=== PATIENT | female | born 1965 | race Caucasian/White ===

== ENCOUNTER 2016-11-13 06:44 | Emergency (ER) | payer OTHER ==
[~2016-11-13] VITALS: Ht 154.9 cm; Wt 68.0 kg
[~2016-11-13 06:44] MED LIST: ALBUTEROL0.09 MG/A1 INH; AMOXICILLIN875 M1 PO; AMOXIL500 MG PO; ANTI-FUNGAL1% TOP; CLEOCIN HCL300 MG PO; IBU800 MG PO; IBUPROFEN800 M1 PO; KEFLEX500 M1 PO; MEDROL DOSEPAK1 PAC PO; MOBIC15 MG PO; MOTRIN800 MG PO; MUCINEX600 M1 PO; NASONEX0.05 MG/Ac NAS; NORFLEX100 MG PO; PERCOCET 325 MG1 TA2 PO; PERCOCET 7.5-31 EACH PO; PROAIR HFA8.5 GM INH; ROBITUSSIN W/CO10 ML PO; TESSALON PERLE100 MG PO; VISTARIL50 MG PO; VOLTAREN75 MG PO; ZITHROMAX Z-PA250 M1 PO; ZITHROMAX250 M2 PO
[2016-11-13 06:57] VITALS: BP 127/78
--- NOTE | 2016-11-13 07:25 | ED INFLUENZA/URI COMPLAINT ---
History of Present Illness General Chief Complaint: General Adult Stated Complaint: CONGESTED/CRISOSTOMO Source: patient, old records Exam Limitations: no limitations Vital Signs & Intake/Output Vital Signs & Intake/Output Vital Signs Date Time Temp Pulse Resp B/P Pulse O2 O2 Flow FiO2 Ox Delivery Rate 11/13 0657 97.5 84 20 127/78 94 Room Air Allergies Coded Allergies: codeine (Intermediate, VOMITING/SENSITIVE TO IT 05/13/16) Reconcile Medications Albuterol Sulfate (Proair Hfa) 90 MCG HFA.AER.AD 2 PUF INH Q4-6 PRN PRN DYSPNEA Albuterol Sulfate (Proair Hfa) 90 MCG HFA.AER.AD 2 PUF INH Q4-6 PRN PRN bronchitis Amoxicillin 875 MG TABLET 1 TAB PO BID dental abscess Azithromycin (Zithromax) 250 MG TABLET 1 DP PO AD BRONCHITIS 2 the first day followed by 1 for days 2-5 Azithromycin (Zithromax) 250 MG TABLET 1 DP PO AD bronchitis 2 the first day followed by 1 for days 2-5 Benzonatate (Tessalon Perle) 100 MG CAPSULE 1 CAP PO TID PRN COUGH Cephalexin (Keflex) 500 MG CAPSULE 2 CAP PO ONCE ANTIBIOTIC (Reported) Guaifenesin (Mucinex) 600 MG TAB.ER.12H 1 TAB PO BID bronchitis Ibuprofen (Ibu) 800 MG TAB 1 TAB PO PRN PAIN (Reported) Ibuprofen 800 MG TABLET 1 TAB PO Q8 PRN PAIN Ibuprofen 800 MG TABLET 1 TAB PO NEEDED Fever/Body aches Oxycodone HCl/Acetaminophen (Percocet 7.5-325 MG Tablet) 1 EACH TABLET 1 TAB PO PRN PAIN (Reported) Triage Note: PT STATES "MY EARS ARE CLOGGED, I HAVE A COUGH AND SORE THROAT" X 2 DAYS. STATES THIS HAPPENS EVERY YEAR". STATES TOOK A MOTRIN FOR SORE THROAT LAST NIGHT AND IT WENT AWAY. Triage Nurses Notes Reviewed? yes Onset: Gradual Duration: day(s): (FEW) Timing: recent history Severity: severe Associated Symptoms: cough, sore throat HPI: This is a 51-year-old female with history of right chronic rotator cuff pain and presents to the ER chief complaint of URI symptoms for the past 3 days. Bad cough at night, ear pain, throat pain and worse voice. Denies any recent sick contacts. She is a pack per day smoker. No other associated symptoms. Denies rash, abdominal pain, nausea or vomiting. Past History Travel History Traveled to [place] past 21 day No Medical History Any Pertinent Medical History? 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 No Review of Systems Review of Systems Constitutional: Reports: chills. EENTM: Reports: throat pain. Respiratory: Reports: cough. Cardiovascular: Denies: chest pain. GI: Reports: no symptoms. Genitourinary: Reports: no symptoms. Musculoskeletal: Reports: no symptoms. Skin: Reports: no symptoms. Neurological/Psychological: Reports: no symptoms. Hematologic/Endocrine: Denies: bruising, bleeding, polyuria, polydipsia. Immunologic/Allergic: Denies: splenectomy. All Other Systems: Reviewed and Negative Physical Exam Physical Exam General Appearance: well developed/nourished, alert, awake, mild distress Head: atraumatic, normal appearance Eyes: Bilateral: normal appearance, PERRL, EOMI. Ears, Nose, Throat: pharyngeal erythema Neck: normal inspection Respiratory: decreased breath sounds Cardiovascular: regular rate/rhythm Extremities: normal inspection, normal capillary refill, normal range of motion, no edema Neurologic/Psych: no motor/sensory deficits, awake, alert, oriented x 3, normal gait Skin: intact, normal color, warm/dry Core Measures Severe Sepsis Present: No Septic Shock Present: No Progress Differential Diagnosis: pneumonia, sinusitis, URI, PHARYNGITIS Plan of Care: SMOKE CESESATION, PROAIR INHALER, ZITHROMAX. Initial ED EKG: none Departure Departure Time of Disposition: 730 Disposition: HOME OR SELF CARE Condition: Stable Clinical Impression Primary Impression: URI (upper respiratory infection) Secondary Impressions: Tobacco abuse, Tobacco abuse counseling Referrals: MELIDA MATA MD (PCP/Family) Additional Instructions: Take prescriptions as directed. Stop smoking. Follow-up with your doctor in the office. Return as needed. Departure Forms: Customer Survey General Discharge Information Prescriptions: Current Visit Scripts Albuterol Sulfate (Proair Hfa) 2 PUF INH Q4-6 PRN PRN DYSPNEA #1 INHAL Azithromycin (Zithromax) 1 DP PO AD #6 TAB 2 the first day followed by 1 for days 2-5 Benzonatate (Tessalon Perle) 1 CAP PO TID PRN COUGH #30 CAP
[2016-11-13] MEDS ORDERED: ZITHROMAX250 M2 PO (07:29)
[2016-11-13] MEDS ORDERED: TESSALON PERLE100 M1 PO (07:29)
[2016-11-13] MEDS ORDERED: PROAIR HFA8.5 GM INH (07:29)
== END 2016-11-13 07:30 ==
LOC: ERH 06:44
DX: J06.9 Acute upper respiratory infection, unspecified (principal); Z71.6 Tobacco abuse counseling; F17.210 Nicotine dependence, cigarettes, uncomplicated

== ENCOUNTER 2016-12-24 09:05 | Emergency (ER) | payer OTHER ==
[~2016-12-24] VITALS: Ht 154.9 cm; Wt 67.1 kg
[~2016-12-24 09:05] MED LIST changes: +TESSALON PERLE100 M1 PO
[2016-12-24 09:12] VITALS: BP 147/91
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
== END 2016-12-24 10:01 ==
LOC: ERH 09:05
DX: S61.001A Unspecified open wound of right thumb without damage to nail, initial encounter (principal); W27.2XXA Contact with scissors, initial encounter
CPT/HCPCS: 99282

== ENCOUNTER 2017-03-04 20:30 | Emergency (ER) | payer OTHER ==
[~2017-03-04] VITALS: Ht 154.9 cm; Wt 69.4 kg
[2017-03-04 20:34] VITALS: BP 149/109
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
[2017-03-04] MEDS ORDERED: MOBIC15 M1 PO (21:21)
[2017-03-04] MEDS ORDERED: PERCOCET 7.5-31 EACH PO (21:21)
== END 2017-03-04 21:28 ==
LOC: ERH 20:30
DX: G89.29 Other chronic pain (principal); M25.511 Pain in right shoulder

== ENCOUNTER 2018-03-02 19:00 | Emergency (ER) | payer OTHER ==
[~2018-03-02] VITALS: Ht 154.9 cm; Wt 67.6 kg
[~2018-03-02 19:00] MED LIST changes: +CYCLOBENZAPRINE5 M2 PO; +MOBIC15 M1 PO; +PENICILLIN V P500 M1 PO; +PROVENTIL HFA6.7 GM INH
--- NOTE | 2018-03-02 20:26 | ED DYSPNEA/ASTHMA COMPLAINT ---
History of Present Illness General Chief Complaint: Dyspnea (COPD, CHF, Other) Stated Complaint: SOB Source: patient Exam Limitations: no limitations Vital Signs & Intake/Output Vital Signs & Intake/Output Vital Signs Date Time Temp Pulse Resp B/P B/P Pulse O2 O2 Flow FiO2 Mean Ox Delivery Rate 03/02 2027 97.8 84 18 138/74 97 Room Air 03/02 2026 97 Room Air 03/02 1908 97.8 86 20 143/82 97 Room Air Allergies Coded Allergies: codeine (Intermediate, VOMITING/SENSITIVE TO IT 05/13/16) Reconcile Medications Albuterol Sulfate (Proair Hfa) 90 MCG HFA.AER.AD 2 PUF INH Q4-6 PRN PRN sob Azithromycin (Zithromax) 250 MG TABLET 1 DP PO AD bronchitis 2 the first day followed by 1 for days 2-5 Benzonatate (Tessalon Perle) 100 MG CAPSULE 1 CAP PO TID PRN cough Ibuprofen 800 MG TABLET 1 TAB PO Q8 PRN PAIN Oxycodone HCl/Acetaminophen (Percocet 7.5-325 MG Tablet) 7.5 MG-325 MG TABLET 1 TAB PO BID PRN pain Triage Note: PT TO ED C/O SOB FOR 6 MONTHS WITH COUGH. SAW CT MRI TECHNOLOGIST ON FRIDAY (3 DAYS AGO) WAS TOLD HAS "SOMETHING GOING ON IN BASE OF LUNGS" BUT HAS NOT GOTTEN OFFICIAL RESULTS YET. USED TO BE A 2PPD SMOKER, DOWN TO ABOUT 1PPD. HAD A NEBULIZER TREATMENT ON FRIDAY WITH GOOD RELIEF "I CAN'T GET MY DOCTOR TO GET ME ONE" CAME TO ED HOPING TO GET RX FOR NEBULIZER O2 SAT 97% ON RA IN TRIAGE Triage Nurses Notes Reviewed? yes Onset: chronic Duration: 6 months Timing: recent history Severity: moderate HPI: 52-year-old female comes into the emergency room with complaints of shortness of breath is been going on for 6 months. She has a [id number] history. She recently saw a lung doctor and was started on Spiriva. She still continues to smoke. She reports that she is short of breath with any type of exertion. Nebulizer treatments have helped her in the past. She denies any chest pain. Denies any fever chills cough. (Jeancarlos BALLARD,Esvin) Past History Travel History Traveled to [place] past 21 day No Medical History Any Pertinent Medical History? see below for history Neurological: NONE EENT: NONE Cardiovascular: NONE Respiratory: bronchitis Gastrointestinal: NONE Hepatic: NONE Renal: NONE Musculoskeletal: chronic shoulder pain Psychiatric: NONE Endocrine: NONE Blood Disorders: NONE Cancer(s): NONE POULTRY HANGER/Reproductive: NONE Surgical History Surgical History: UTERINE ABLATION Psychosocial History What is your primary language Citizen [place] Tobacco Use: Current Daily Use Daily Tobacco Use Amount/Type: => 5 Cigarettes daily ETOH Use: denies use Illicit Drug Use: denies illicit drug use Family History Hx Contributory? No (Esvin Garner) Review of Systems Review of Systems Constitutional: Reports: no symptoms. EENTM: Reports: no symptoms. Respiratory: Reports: see HPI. Cardiovascular: Reports: no symptoms. GI: Reports: no symptoms. Genitourinary: Reports: no symptoms. Musculoskeletal: Reports: no symptoms. Skin: Reports: no symptoms. Neurological/Psychological: Reports: no symptoms. Hematologic/Endocrine: Reports: no symptoms. Immunologic/Allergic: Reports: no symptoms. All Other Systems: Reviewed and Negative (Esvin Garner) Physical Exam Physical Exam General Appearance: well developed/nourished, no apparent distress, alert, awake Head: atraumatic, normal appearance Eyes: Bilateral: normal appearance. Ears, Nose, Throat: normal ENT inspection, hearing grossly normal Neck: normal inspection Respiratory: no respiratory distress, decreased breath sounds Cardiovascular: regular rate/rhythm Extremities: normal inspection Neurologic/Psych: awake, alert, oriented x 3 Skin: intact, normal color Core Measures ACS in differential dx? Yes CVA/TIA Diagnosis No Sepsis Present: No Sepsis Focused Exam Completed? No (Esvin Garner) Progress Differential Diagnosis: asthma, AMI, bronchitis, COPD, pulmonary embolism, pneumonia, pneumothorax Plan of Care: Orders Procedure Date/time Status EKG 03/02 1935 Active Laboratory Tests 03/02/181934: Troponin I Cancelled, D-Dimer High Sensitivty Cancelled, CBC w Diff Cancelled, WBC Cancelled, RBC Cancelled, Hgb Cancelled, Hct Cancelled, MCV Cancelled, MCH Cancelled, MCHC Cancelled, RDW Cancelled, Plt Count Cancelled, MPV Cancelled Initial ED EKG: none (patient declined) Comments: 03/02/2018 10:27:04 PM Patient declined EKG blood work and chest x-ray. I explained to her I cannot rule out any type of life-threatening conditions. I do feel her symptoms are most consistent with likely COPD. Patient was counseled on quitting smoking. She reports that she is going to continue to smoke at this time. She does not want to take the Spiriva that was given to her but says that she wants to feel better and not short of breath. She reports that she does not like taking medications. I her explained to that she needs to take the Spiriva. She declined everything except the nebulizer treatment. She does report that she feels better after the nebulizer treatment. She is recommended to follow back up with her doctor. She was recommended to quit smoking. She understands that I cannot rule out any life-threatening conditions without doing EKG and further evaluation. She is medically competent and able to make her own medical decisions (Jeancarlos BALLARD,Esvin) Departure Departure Disposition: HOME OR SELF CARE Condition: Stable Clinical Impression Primary Impression: Dyspnea Referrals: Roopa Almaraz APRN (PCP/Family) Additional Instructions: Take your spiriva pump that was prescribed to you. 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 You need to stop smoking or your symptoms will continue to get worse. At this time you have declined EKG blood work and chest x-ray. Cannot rule out any other life-threatening conditions that could be causing her symptoms. This includes but not limited to any type of acute heart attack or pulmonary embolism which is a blood clot in your lung. Please go over all results of today's visit with your primary care doctor. Contact your primary care doctor to let them know you were here in the emergency room. There may be nonspecific findings which may not be related to your visit today here in the emergency room but may require further evaluation and chronic monitoring by your primary care doctor. If you had a laceration today the chance of foreign body always remains. You should follow-up with your primary care doctor for recheck in 3-5 days for a wound check. If you had an x-ray done there is a chance that a fracture could have been missed on initial read and you should follow-up with your primary care doctor for repeat x-rays if symptoms persist. If your blood pressure was elevated here in the emergency room please have rechecked by [facility] primary care doctor within the next 48. If you were prescribed a narcotic here in the emergency room or any type of controlled substances you're not allowed to drive while taking this medication or operate any type of heavy machinery. Narcotics can make you feel lightheaded dizziness nausea and can cause constipation. You may need to orange picker machine operator a stool softener. Thank you for choosing [facility] emergency room. Please return to the emergency room immediately if you have any other concerns worsening of symptoms. Departure Forms: Customer Survey General Discharge Information (Esvin Garner) PA/MEAT PASSER Co-Sign Statement Statement: ED Attending supervision documentation- [] I saw and evaluated the patient. I have also reviewed all the pertinent lab results and diagnostic results. I agree with the findings and the plan of care as documented in the PA's/MEAT PASSER's documentation. [X] I have reviewed the ED Record and agree with the PA's/MEAT PASSER's documentation. [] Additions or exceptions (if any) to the PAs/MEAT PASSER's note and plan are summarized below: [] (Lisette ANGELO,Sam Luna) Critical Care Note Critical Care Note Critical Care Time: non-applicable (Esvin Garner)
[2018-03-02 20:27] VITALS: BP 138/74
== END 2018-03-02 20:30 ==
LOC: ERH 19:00
DX: R06.00 Dyspnea, unspecified (principal)
CPT/HCPCS: 1263